=== PATIENT | female | born 1975 | race Hispanic/Latino ===

== ENCOUNTER 2017-03-19 00:57 | Emergency (ER) | payer OTHER, SELFPAY ==
[2017-03-19] MEDS ORDERED: predniSONE 20 MG TAB ONE ×2 (01:11)
== END 2017-03-19 01:35 | disposition home or self-care (01) ==
LOC: BURERS 00:57
DX: J45.21 Mild intermittent asthma with (acute) exacerbation (principal)
CPT/HCPCS: J7506; J7620

== ENCOUNTER 2017-06-13 09:10 | Emergency (ER) | payer OTHER | END 2017-06-13 09:25 | disposition home or self-care (01) | LOC: BURERS 09:10 | DX: S51.812D Laceration without foreign body of left forearm, subsequent encounter (principal); L08.9 Local infection of the skin and subcutaneous tissue, unspecified; J45.909 Unspecified asthma, uncomplicated; F41.9 Anxiety disorder, unspecified; F31.9 Bipolar disorder, unspecified; F20.9 Schizophrenia, unspecified; Z79.51 Long term (current) use of inhaled steroids; X58.XXXD Exposure to other specified factors, subsequent encounter | CPT/HCPCS: 99282 ==

== ENCOUNTER 2017-07-30 15:00 | Emergency (ER) | payer OTHER ==
[2017-07-30] MEDS ORDERED: predniSONE 20 MG TAB ONE (15:21)
[2017-07-30 15:36] LABS: #Eosinphils 0.3 thou/uL (0.0-0.7); #Lymphocytes 2.6 thou/uL (1.20-3.40); #Monocytes 0.3 thou/uL (0.11-0.59); #Neutrophils 3.9 thou/uL (1.40-6.50); %Basophils 0.5 % (0.0-1.0); %Eosinophils 4.2 % (0.0-10.0); %Lymphocytes 36.6 % (21.0-51.0); %Monocytes 3.6 % (0.0-10.0); %Neutrophils 55.1 % (42.0-75.0); Hemoglobin 10.3 g/dL (12.0-16.0); Mean Corpuscular HGB CONC 34.8 g/dL (32.0-36.0); Mean Corpuscular Hemoglobin 28.5 pg (27.0-31.0); Mean Corpuscular Volume 81.8 fl (81.0-99.0); Mean Platelet Volume 5.9 fL (7.4-10.4); Platelet Count 423 thou/uL (130-400); RBC Distribution Width 12.8 % (11.5-14.5)
[2017-07-30 15:57] LABS: ALT (SGPT) 16 U/L (8-55); AST (SGOT) 12 U/L (5-34); Albumin 3.3 g/dL (3.5-5.0); Alkaline Phosphatase 76 U/L (40-150); Anion Gap 13 mmol/L (10-20); BUN (Urea Nitrogen) 5 mg/dL (7.0-18.7); Bilirubin, Total 0.3 mg/dL (0.2-1.2); Calc. Creatinine Clearance 0 mL/min (70-130); Calcium 8.8 mg/dL (7.8-10.44); Carbon Dioxide 23 mmol/L (22-29); Chloride 107 mmol/L (98-107); Estimated GFR-MDRD Greater than 90; Globulin 3.7 g/dL (2.4-3.5); Glucose 104 mg/dL (70-105); Potassium 3.2 mmol/L (3.5-5.1); Sodium 140 mmol/L (136-145)
[2017-07-30] MEDS ORDERED: Azithromycin 250 MG TAB ONE (16:05)
[2017-07-30] MEDS ORDERED: Benzonatate 100 MG CAP ONE (16:05)
--- NOTE | 2017-07-30 17:52 | RAD ---
PORTABLE CHEST: 07/30/2017 COMPARISON: No prior films are available for comparison. FINDINGS: A portable study at 1505 shows a normal sized heart. While there is a slight haziness throughout the lungs, this is felt to be more likely due to the overlying soft tissues than an actual pathological process. The vessels themselves do not really appear very congested. There are no effusions. The t rachea is midline. IMPRESSION: Probably negative study. Upright PA and lateral view might be a little more sensitive to disease. POS: HOME
== END 2017-07-30 16:16 | disposition home or self-care (01) ==
LOC: BURERS 15:00
DX: J45.901 Unspecified asthma with (acute) exacerbation (principal); F41.9 Anxiety disorder, unspecified; F31.9 Bipolar disorder, unspecified; F20.9 Schizophrenia, unspecified; Z79.899 Other long term (current) drug therapy
CPT/HCPCS: 36415; 71045; 80053; 83880; 85025; 94640; J7506; J7620

== ENCOUNTER 2020-02-03 20:03 | Emergency (ER) | payer OTHER ==
[2020-02-03] MEDS ORDERED: Lidocaine 1% PF 5 ML VIAL ONE (20:23)
[2020-02-03] MEDS ORDERED: cefTRIAXone\\ROCEPHIN 1 GM VIAL ONE (20:23)
[2020-02-03] MEDS ORDERED: HYDROcodone/Acetaminophen 10/325 mg Tablet ONE (20:24)
== END 2020-02-03 20:30 | disposition home or self-care (01) ==
LOC: BURERS 20:03
DX: A69.1 Other Vincent's infections (principal); K02.9 Dental caries, unspecified; K03.81 Cracked tooth; J45.909 Unspecified asthma, uncomplicated; Z77.22 Contact with and (suspected) exposure to environmental tobacco smoke (acute) (chronic)
CPT/HCPCS: 96372; 99283; J0696

== ENCOUNTER 2021-02-02 09:36 | Emergency (ER) | payer OTHER ==
[2021-02-02] MEDS ORDERED: Ibuprofen 200 MG TAB ONE (10:08)
[2021-02-02] MEDS ORDERED: Bicillin LA 1.2 MILLION UNITS/2 ML SYRINGE ONE (10:09)
== END 2021-02-02 10:18 | disposition home or self-care (01) ==
LOC: BURERS 09:36
DX: K04.7 Periapical abscess without sinus (principal); J45.909 Unspecified asthma, uncomplicated; Z77.22 Contact with and (suspected) exposure to environmental tobacco smoke (acute) (chronic)
CPT/HCPCS: 96372; 99282; J0561

== ENCOUNTER 2023-04-12 12:27 | Emergency (ER) | payer OTHER ==
[2023-04-12] MEDS ORDERED: predniSONE 20 MG TAB ONE (12:39)
== END 2023-04-12 12:44 | disposition home or self-care (01) ==
LOC: BURERS 12:27
DX: G51.0 Bell's palsy (principal)
CPT/HCPCS: 99284; J7512